=== PATIENT | female | born 1985 | race Caucasian/White ===

== ENCOUNTER 2018-09-23 22:27 | Emergency (ER) | payer SELFPAY ==
[~2018-09-23] VITALS: Ht 167.6 cm; Wt 59.1 kg
[2018-09-23 22:35] VITALS: BP 110/66
== END 2018-09-24 02:04 | disposition home or self-care (01) ==
LOC: ED 23:30
DX: S46.811A Strain of other muscles, fascia and tendons at shoulder and upper arm level, right arm, initial encounter (principal); S16.1XXA Strain of muscle, fascia and tendon at neck level, initial encounter; Y08.89XA Assault by other specified means, initial encounter; Y93.89 Activity, other specified; Y92.69 Other specified industrial and construction area as the place of occurrence of the external cause; Y99.0 Civilian activity done for income or pay
CPT/HCPCS: 99283

== ENCOUNTER 2018-10-26 04:20 | Emergency (ER) | payer SELFPAY ==
[~2018-10-26] VITALS: Ht 167.6 cm; Wt 63.9 kg
[2018-10-26 04:24] VITALS: BP 135/84
--- NOTE | 2018-10-26 04:35 | NUR ---
PT IS ER PA PRESENTING WITH FINGERSTICK EXPOSURE WHILE SUTURING A PT. LABS ORDERED PER PROTOCOL.
[2018-10-26 04:55] LABS: ALBUMIN 4.2 g/dL (3.4-5.0); ANION GAP 6 mmol/L (5-15); CALCIUM 9.3 mg/dL (8.5-10.1); CHLORIDE 107 mmol/L (98-107)
[2018-10-26 04:58] LABS: ALANINE AMINOTRANSFERASE 32 U/L (12-78); ALKALINE PHOSPHATASE 71 U/L (45-117); BILIRUBIN,TOTAL 0.2 mg/dL (0.2-1.0); CREATININE 0.83 mg/dL (0.55-1.02); TOTAL PROTEIN 7.5 g/dL (6.4-8.2)
--- NOTE | 2018-10-26 05:00 | NUR ---
LABS DRAWN AND EXPOSURE PACKET COMPLETE. PT TO BE D/C.
== END 2018-10-26 05:09 | disposition home or self-care (01) ==
LOC: ED 04:50
DX: S61.032A Puncture wound without foreign body of left thumb without damage to nail, initial encounter (principal); Z77.21 Contact with and (suspected) exposure to potentially hazardous body fluids; W46.0XXA Contact with hypodermic needle, initial encounter; Y93.F9 Activity, other caregiving; Y92.89 Other specified places as the place of occurrence of the external cause; Y99.8 Other external cause status
CPT/HCPCS: 36415; 80053; 86706; 86803; 87340; 87806; 99283; G0475